=== PATIENT | female | born 1980 | race Caucasian/White ===

== ENCOUNTER 2017-11-09 16:06 | Emergency (ER) | payer OTHER ==
[~2017-11-09] VITALS: Ht 162.6 cm; Wt 81.6 kg
[2017-11-09 16:17] VITALS: Ht 162.6 cm; Wt 81.6 kg
[2017-11-09 17:28] LABS: BASOPHIL % 0.4 % (0-2); PLATELET COUNT 333 x10^3mcL (130-400)
[2017-11-09 17:31] LABS: RED CELL DISTRIBUTION WIDTH 17.3 % (11.5-14.5)
[2017-11-09 17:50] LABS: CALCIUM 8.9 mg/dL (8.5-10.1); CHLORIDE SERUM 104 mmol/L (98-107); CREATININE SERUM 0.8 mg/dL (0.6-1.0); GFR1 > 60 mL/min; GLUCOSE SERUM 108 mg/dL (74-106); POTASSIUM SERUM 4.2 mmol/L (3.5-5.1); SODIUM SERUM 140 mmol/L (136-145)
[2017-11-09 17:54] LABS: ALKALINE PHOSPHATASE 64 U/L (46-116); ALT/SGPT 17 U/L (14-59); AST/SGOT 13 U/L (15-37); BILIRUBIN TOTAL 0.2 mg/dL (0.20-1.00); TOTAL PROTEIN, SERUM 7.7 g/dL (6.4-8.2)
[2017-11-09 17:55] LABS: ALBUMIN 3.1 g/dL (3.4-5.0)
[2017-11-09 18:13] LABS: microscopic required? YES; urine erythrocyte 2+ (NEGATIVE)
[2017-11-09 18:35] LABS: AMPHETAMINE QUAL UR NONE DETECTED (See below)
[2017-11-09 20:17] VITALS: BP 110/64
== END 2017-11-09 20:17 | disposition home or self-care (01) ==
LOC: ED 16:06
PROVIDERS: Emergency Medicine
DX: T43.592A Poisoning by other antipsychotics and neuroleptics, intentional self-harm, initial encounter (principal); Y92.89 Other specified places as the place of occurrence of the external cause; N39.0 Urinary tract infection, site not specified
CPT/HCPCS: G0480; J2405; J7030